=== PATIENT | female | born 1955 | race Caucasian/White ===

== ENCOUNTER 2016-07-22 10:07 | Emergency (ER) | payer BC ==
[~2016-07-22] VITALS: Ht 172.7 cm; Wt 100.0 kg
[~2016-07-22 10:07] MED LIST: ATOR40TA78 PO; DULO60CA7 PO; HYDR-3138 PO; METF10002 PO; METF500T4 PO; METO25TA35 PO
[2016-07-22] MEDS ORDERED: SODIUM CHLORIDE 0.9% 1,000ML IV ONE (10:30)
[2016-07-22] MEDS ORDERED: SODIUM CHLORIDE FLUSH 10ML SYR IVF ONE (10:30)
[2016-07-22] MEDS ORDERED: ONDANSETRON 2MG/ML, 2ML IVPush ONE (10:30)
[2016-07-22] MEDS ORDERED: MORPHINE SULFATE 4 MG/ML, 1ML IVPush PRN (10:30)
[2016-07-22 10:54] LABS: ASPARTATE AMINO TRANSFERASE 27 U/L (15-37); BLOOD UREA NITROGEN 14 mg/dL (7-18)
[2016-07-22 11:02] LABS: PATH.CAST-FLAG NOT PRESENT; SPERM-FLAG NOT PRESENT; SRC-FLAG NOT PRESENT; XTAL-FLAG NOT PRESENT; YLC-FLAG NOT PRESENT
[2016-07-22] MEDS ORDERED: KETOROLAC 30 MG/1 ML ONE (11:11)
[2016-07-22] MEDS ORDERED: MORPHINE SULFATE 4 MG/ML, 1ML ONE (11:11)
[2016-07-22] MEDS ORDERED: ONDANSETRON 2MG/ML, 2ML ONE (11:11)
[2016-07-22] MEDS ORDERED: KETOROLAC 30 MG/1 ML IVPush ONE (11:30)
[2016-07-22 12:25] VITALS: BP 107/67
== END 2016-07-22 12:26 | disposition home or self-care (01) ==
LOC: ED 10:51
DX: N13.2 Hydronephrosis with renal and ureteral calculous obstruction (principal); R31.9 Hematuria, unspecified; E78.5 Hyperlipidemia, unspecified; E11.9 Type 2 diabetes mellitus without complications; I10 Essential (primary) hypertension
CPT/HCPCS: 36415; 74176; 80053; 81001; 83690; 85025; 87086; 96361; 96374; 96375; 99285; J1885; J2405; J7030